=== PATIENT | male | born 1995 | race Caucasian/White ===

== ENCOUNTER 2020-05-23 13:36 | Emergency (ER) | payer OTHER ==
[~2020-05-23] VITALS: Ht 167.6 cm; Wt 122.5 kg
[~2020-05-23 13:36] MED LIST: ZOFRAN ODT4 MG SL
[2020-05-23 13:58] VITALS: BP 138/71
== END 2020-05-23 14:44 | disposition home or self-care (01) ==
LOC: ED 13:36
DX: S89.91XA Unspecified injury of right lower leg, initial encounter (principal); Z91.040 Latex allergy status; X58.XXXA Exposure to other specified factors, initial encounter; Y93.72 Activity, wrestling; Y92.89 Other specified places as the place of occurrence of the external cause; Y99.8 Other external cause status

== ENCOUNTER → 2020-09-26 | Outpatient (CLI) | payer OTHER | END | disposition home or self-care (01) | LOC: COVID19 14:21 | PROVIDERS: ATTEND Family Medicine | DX: U07.1 COVID-19 (principal) ==